=== PATIENT | male | born 1950 | race Hispanic/Latino ===

== ENCOUNTER 2018-04-01 08:09 | Inpatient (IN) | payer MEDICARE, BC ==
[2018-04-01] MEDS ORDERED: Sodium Chloride 0.9% 1,000 ML IV STA ×2 (09:07→12:06)
--- NOTE | 2018-04-01 09:11 | ED PDOC ---
Arrival/HPI - General Chief Complaint: GI Problem Time Seen by Provider: 04/01/18 08:53 Historian: Patient - History of Present Illness Narrative History of Present Illness (Text): 04/01/18 09:11 67 year old male, whose past medical history includes hypertension and inguinal hernia, presents to the emergency department complaining of acute onset of severe nauseousness and persistent vomiting since last night. Patient also describes during the onset of vomiting there was associated onset of chills and sweats. Patient felt discomfort to the right lower groin region. He reports history of hernia that he has been treating on his own for the past year however to his knowledge the right inguinal hernia felt like a ball to him since last night and was unable to reduce it himself. He describes mild discomfort and states he vomited at least 4-5 times since last night. Patient's last bowel movement was this morning, normal appearing and non-bloody. Patient reports no vomiting prior to arrival and decreased appetite, but denies any fever, chest pain/shortness of breath/palpitations, numbness/tingling, urinary/ bowel changes/complaints, fall/trauma/sick contact/travel. No other complaints noted; Patient presents for further evaluation. PMD: Dr. Christopher Cabrera Time/Duration: 24 hours Symptom Onset: Sudden Symptom Course: Unchanged Activities at Onset: Light Context: Home Past Medical History - Provider Review Nursing Documentation Reviewed: Yes - Travel History Have you recently traveled outside [place] w/in the past 3 mons?: No - Past History Past History: Non-Contributing (hx of right inguinal hernia) - Infectious Disease Hx of Infectious Diseases: None - Cardiac Hx Hypertension: Yes - HEENT Other/Comment: tinitis - Psychiatric Hx Anxiety: Yes Hx Depression: Yes Hx Panic Disorder: Yes Hx Substance Use: No - Anesthesia Hx Anesthesia: Yes Hx Anesthesia Reactions: No Family/Social History - Physician Review Nursing Documentation Reviewed: Yes Family/Social History: No Known Family HX Smoking Status: Heavy Smoker > 10 Cigarettes Daily Hx Alcohol Use: No Hx Substance Use: No Hx Substance Use Treatment: No Allergies/Home Meds Allergies/Adverse Reactions: Allergies No Known Allergies Allergy (Verified 04/01/18 11:54) Home Medications: Home Meds Medication Instructions Recorded Confirmed Lisinopril [Zestril] 10 mg PO DAILY 04/01/18 04/01/18 PARoxetine [Paxil] 10 mg PO DAILY 04/01/18 04/01/18 amLODIPine [Norvasc] 5 mg PO DAILY 04/01/18 04/01/18 Review of Systems - Physician Review All systems were reviewed & negative as marked: Yes - Review of Systems Constitutional: Other (Chills and sweats). absent: Fevers Eyes: Normal ENT: Normal Respiratory: absent: SOB Cardiovascular: absent: Chest Pain, Palpitations Gastrointestinal: Nausea, Vomiting, Appetite Changes (Decreased appetite). absent: Stool Changes Genitourinary Male: absent: Dysuria, Urinary Output Changes Musculoskeletal: Normal Skin: Normal Neurological: absent: Headache, Other (Numbness/tingling) Endocrine: Normal Hemo/Lymphatic: Normal Psychiatric: Normal Physical Exam - Physical Exam Narrative Physical Exam (Text): General: alert/awake, GCS = 15, oriented x 3, resting in bed, uncomfortable, cooperative, interactive Head: NC/AT EYE: PERRLA, EOMI, sclera anicteric, no nystagmus, no photophobia Facial: WNL Oral: intact dentitions; uvula/tongue are midline, no exudate/lesions, no drooling/stridor, no dysphonia NECK: intact ROM, no midline tenderness, no nuchal rigidity, no meningeal signs ; no step off Chest: CTA b/l, no w/r/r; no tachypenia, no accessory muscle use noted Cardiac: +S1, +S2, no m/r/r Abdominal: +BS, soft/ND well nourished patient; no rebound/guarding/rigidity; + right inguinal/groin region indurated mass is noted, unable to reduce, slight tenderness on exam, approximately the size of a small orange; no crews's sign, no mcburney's point tenderness noted Ext: intact ROM, strength 5/5 grossly intact in all limbs, neurovasc intact b/l ; no pitting edema noted b/l, + ambulatory SKIN: cap refill < 1 sec, no ulcerations, no petechiae, no rashes NEURO: CNII-XII WNL, no facial asymmetries, no slurr speech, oriented x 3 NIH stroke scale ~ 0 Psych: normal insight, normal affect Vital Signs Reviewed: Yes Vital Signs Temp Pulse Resp BP Pulse Ox 04/01/18 11:24 86 18 158/74 H 97 04/01/18 08:25 97.9 F 90 16 165/82 H 99 Temperature: Afebrile Blood Pressure: Hypertensive Pulse: Regular Respiratory Rate: Normal Appearance: Positive for: Well-Appearing, Non-Toxic, Uncomfortable Pain Distress: None Mental Status: Positive for: Alert and Oriented X 3 - Systems Exam Head: Present: Atraumatic, Normocephalic Medical Decision Making ED Course and Treatment: 04/01/18 09:11 Impression: right inguinal mass, r/o incarceration, unlikely obstruction 67 year old male presents complaining of acute onset of severe nauseousness and persistent vomiting since last night. Patient reports his inguinal hernia felt like a ball and unable to reduce himself. I have considered all differential diagnoses regarding patients chief medical complaints/clinical findings which include but are not limited to: right inguinal mass, r/o incarceration, unlikely obstruction, unlikely appy, unlikely food poisoning Plan: -- VBG -- Labs -- IV Fluids, Zofran Inj -- Urinalysis -- Reassess and disposition Progress Notes: 04/01/18 09:[address]Thomas Cabrera. Attempt to contact him was unsuccessful and will continue to page and attempt to reach out. 04/01/18 10:[address] Cabrera who is aware and agrees with the plan. Request surgery consult under Dr. Thurman. 04/01/18 10:42 Product Coordinator team and Dr. Cabrera are at patient's bed side and evaluating the patient. They would like to obtain a CT. Will continue to monitor patient. due to abnl lab results, Dr Cabrera will admit patient to medical service and surgery will continue to monitor pt is currently drinking PO contrast for CT abd/pelvis to be performed 11:30am pt remained comfortable pt is not in any distress pt is made aware of his medical results pt is awaiting CT results pt agrees with admission 04/01/18 12:05 Patient attempted to drink PO contrast. After 2 Cups, patient is viciously vomiting. 1235 CT results obtained, concerning findings are noted, Surgery team is made aware, will continue to monitor patient, pt will likely need surgery I spoke to Dr Cabrera, made aware of abnl CT results, pt will continue to be admitted with close monitor by surgery, would like to consult Luis Alberto for nephrology 04/01/18 13:32 pt and family are made aware of pt's medical results agrees with admission Re-evaluation Time: 11:30 Reassessment Condition: Improving,but remains with symptoms - Critical Care Critical Care Minutes: 45 minutes Critical Care Time: Excluding Proc Time Narrative Critical Care (Text): 04/01/18 13:32 critical care time: 45min, excluding procedure time, excluding time teaching residents/students/mid-level providers; including initial eval/diagnosis, diagnostic interpretation, re-eval, consultations, final disposition - Lab Interpretations Lab Results: 04/01/18 09:51 04/01/18 09:51 Lab Results 04/01/18 09:51: Sodium 155 H, Chloride 113 H, Potassium 5.5 H, Carbon Dioxide 25 , Anion Gap 22 H, BUN 41 H, Creatinine 3.5 H, Est GFR ( Amer) 21, Est GFR (Non-Af Amer) 18, Random Glucose 144 H, Calcium 10.3, Magnesium 2.6 H, Total Bilirubin 0.4, AST 19, ALT 20, Alkaline Phosphatase 103, Total Protein 8.0 , Albumin 4.7, Globulin 3.3, Albumin/Globulin Ratio 1.4, Lipase 168 04/01/18 09:51: pO2 31, VBG pH 7.27 L, VBG pCO2 57.0, VBG HCO3 26.2, VBG Total CO2 27.9, VBG O2 Sat (Calc) 66.6 H, VBG Base Excess -1.7 L, VBG Potassium 5.1, Sodium 146.0, Chloride 112.0 H, Glucose 146 H, Lactate 1.5, FiO2 21.0, Venous Blood Potassium 5.1 04/01/18 09:51: PT 12.0, INR 1.04, APTT 33.5 04/01/18 09:51: WBC 15.8 H, RBC 4.69, Hgb 13.7 L, Hct 41.9 L, MCV 89.3, MCH 29.2 , MCHC 32.7, RDW 13.3, Plt Count 298, MPV 12.0 H, Gran % 87.0 H, Lymph % (Auto) 8.6 L, [place] % (Auto) 3.9, Eos % (Auto) 0.1 L, Baso % (Auto) 0.4, Gran # 13.79 H , Lymph # (Auto) 1.4, [place] # (Auto) 0.6, Eos # (Auto) 0.0, Baso # (Auto) 0.06 I have reviewed the lab results: Yes Interpretation: Abnormal lab values (abnl electrolytes, abnl BUN/creat; elevated WBCs) - RAD Interpretation Narrative RAD Interpretations (Text): 04/01/18 13:37 PROCEDURE: CT Abdomen and Pelvis without intravenous contrast HISTORY: abd pain, right hernia, r/o incarceration/obstrxn COMPARISON: None. TECHNIQUE: Without contrast.. Contrast dose: Radiation dose: Total exam DLP = 259 mGy-cm. This CT exam was performed using one or more of the following dose reduction techniques: Automated exposure control, adjustment of the mA and/or kV according to patient size, and/or use of iterative reconstruction technique. FINDINGS: LOWER THORAX: Unremarkable. LIVER: Unremarkable. No gross lesion or ductal dilatation. GALLBLADDER AND BILE DUCTS: Unremarkable. PANCREAS: Unremarkable. No gross lesion or ductal dilatation. SPLEEN: Unremarkable. ADRENALS: Unremarkable. No mass. KIDNEYS AND URETERS: Unremarkable. No hydronephrosis. No solid mass. VASCULATURE: Unremarkable. No aortic aneurysm. BOWEL: There is an incarcerated right inguinal hernia measuring 5.7 cm in diameter. The this contains a small bowel loop. Severely dilated loops are seen proximal to the hernia. The finding is best seen on coronal image 43. The ER staff was notified of the finding at 12:50 p.m. APPENDIX: Unremarkable. Normal appendix. PERITONEUM: Unremarkable. No free fluid. No free air. LYMPH NODES: Unremarkable. No enlarged lymph nodes. BLADDER: Unremarkable. REPRODUCTIVE: Unremarkable. BONES: No acute fracture. OTHER FINDINGS: None. IMPRESSION: Incarcerated right inguinal hernia containing a loop of small bowel with severe small bowel obstruction Radiology Orders: 04/01/18 10:45 ABD & PELVIS PO CONTRAST ONLY [CT] Stat Canopy Stringer: Radiologist - EKG Interpretation EKG Interpretation (Text): 04/01/18 11:50 NSR at 60 bpm, normal axis, no ectopy, non-specific st changes, BORDERLINE EKG; no old ekg to compare with Interpreted by ED Physician: Yes Type: 12 lead EKG Comparison: No previous EKG avail. - Medication Orders Current Medication Orders: Sodium Chloride (Sodium Chloride 0.9%) 1,000 mls @ 100 mls/hr IV .Q10H STA Stop: 04/01/18 19:06 Last Admin: 04/01/18 09:56 Dose: 100 mls/hr eMAR Start Stop Document 04/01/18 09:56 [email or web address] (Rec: 04/01/18 09:56 [email or web address] [id number]) Intravenous Solution Start Date 04/01/18 Start Time 09:56 End Date 04/01/18 Discontinued Medications Famotidine (Pepcid) 20 mg IVP STAT STA Stop: 04/01/18 12:06 Sodium Chloride (Sodium Chloride 0.9%) 1,000 mls @ 999 mls/hr IV .Q1H1M STA Stop: 04/01/18 13:06 Morphine Sulfate (Morphine) 4 mg IVP STAT STA Stop: 04/01/18 13:12 Ondansetron HCl (Zofran Inj) 4 mg IVP STAT STA Stop: 04/01/18 09:08 Last Admin: 04/01/18 09:56 Dose: 4 mg IVP Administration Document 04/01/18 09:56 [email or web address] (Rec: 04/01/18 09:56 [email or web address] [id number]) Charges for Administration # of IVP Administrations 1 Ondansetron HCl (Zofran Inj) 4 mg IVP STAT STA Stop: 04/01/18 12:06 - Scribe Statement The provider has reviewed the documentation as recorded by the Sydney Mejias Provider Scribe Attestation: All medical record entries made by the Makiibdanay were at my direction and personally dictated by me. I have reviewed the chart and agree that the record accurately reflects my personal performance of the history, physical exam, medical decision making, and the department course for this patient. I have also personally directed, reviewed, and agree with the discharge instructions and disposition. Disposition/Present on Arrival - Present on Arrival Any Indicators Present on Arrival: No History of DVT/PE: No History of Uncontrolled Diabetes: No Urinary Catheter: No History of Decub. Ulcer: No History Surgical Site Infection Following: None - Disposition Have Diagnosis and Disposition been Completed?: Yes Diagnosis: Inguinal hernia with irreducibility, Acute renal insufficiency, Hypernatremia, Nausea and vomiting, Incarcerated inguinal hernia, Small bowel obstruction Disposition: HOSPITALIZED Disposition Time: 11:30 Patient Plan: Admission, Telemetry Patient Problems: Current Active Problems Problem Status Onset Inguinal hernia with irreducibility Acute Acute renal insufficiency Acute Hypernatremia Acute Nausea and vomiting Acute Condition: STABLE
[2018-04-01 09:55] LABS: VENOUS BLOOD GAS BASE EXCESS -1.7 mmol/L (0.0-2.0); VENOUS BLOOD GAS PO2 31 mm/Hg (30-55); VENOUS BLOOD PH 7.27 (7.32-7.43)
[2018-04-01 10:02] LABS: BASO # 0.06 K/mm3 (0.0-2.0); BASO % 0.4 % (0.0-3.0); EOS % 0.1 % (1.5-5.0); GRAN # 13.79 (1.4-6.5); HEMOGLOBIN 13.7 g/dL (14.0-18.0); LYMPH # 1.4 (1.2-3.4); LYMPH % 8.6 % (22.0-35.0); MEAN CELL VOLUME 89.3 fl (80.0-105.0); MEAN CORPUSCULAR HEMOGLOBIN 29.2 pg (25.0-35.0); MEAN CORPUSCULAR HGB CONC 32.7 g/dl (31.0-37.0); MONO # 0.6 (0.1-0.6); MONO % 3.9 % (1.0-6.0); RBC 4.69 10^6/uL (3.5-6.1); RED CELL DISTRIBUTION WIDTH 13.3 % (11.5-14.5); WHITE BLOOD COUNT 15.8 10^3/ul (4.5-11.0)
[2018-04-01 10:05] LABS: ALB/GLOB RATIO 1.4 (1.1-1.8); ALBUMIN 4.7 g/dL (3.0-4.8); CALCIUM 10.3 mg/dL (8.4-10.5)
[2018-04-01 10:13] LABS: INR 1.04 (0.93-1.08); PARTIAL THROMBOPLASTIN TIME 33.5 Seconds (25.1-36.5)
[2018-04-01] MEDS ORDERED: Iohexol 240 (50 ml) ONE (10:49)
--- NOTE | 2018-04-01 12:05 | CP.PCM.CON ---
History of Present Illness - History of Present Illness History of Present Illness: PGY-1 Surgery Consult Note for Dr. Phoebe Andre Reason for consult: Incarcerated inguinal hernia This is a 67 year old male with PMHx HTN and inguinal hernia who presented complaining of intractible nausea/vomiting. This started about 4 hours after he ate at [employer] yesterday. Patient reports that he had 4-5 bouts of green bilious, non-bloody vomiting since yesterday. Surgery was consulted for right inguinal hernia that was unable to be reduced in the ED. Patient reports that he had surgery with mesh placement about 5 or 6 years ago for the hernia. However, he had recurrence of the hernia after he had done some heavy lifting. It protrudes intermittently but has been reducible up until today. Patient was initially in pain, but this has since resolved. PMHx: HTN PSHx: Right inguinal hernia repair with mesh 5 or 6 years ago Allergies: NKDA Social: Current smoker almost 1 ppd for past 40 years. Denies alcohol, drugs. Review of Systems - Constitutional Constitutional: absent: Chills, Fever - EENT Eyes: absent: Change in Vision Ears: absent: Decreased Hearing Nose/Mouth/Throat: absent: Nasal Congestion - Cardiovascular Cardiovascular: absent: Chest Pain - Respiratory Respiratory: absent: Dyspnea - Gastrointestinal Gastrointestinal: Abdominal Pain (resolved), Nausea (improved), Vomiting. absent: Constipation, Diarrhea - Genitourinary Genitourinary: absent: Dysuria - Musculoskeletal Musculoskeletal: absent: Back Pain - Integumentary Integumentary: absent: Rash - Neurological Neurological: absent: Weakness - Psychiatric Psychiatric: absent: Anxiety - Endocrine Endocrine: absent: Palpitations Past Patient History - Infectious Disease Hx of Infectious Diseases: None - Past Social History Smoking Status: Heavy Smoker > 10 Cigarettes Daily - CARDIAC Hx Hypertension: Yes - HEENT Other/Comment: tinitis - PSYCHIATRIC Hx Anxiety: Yes Hx Depression: Yes Hx Panic Symptoms: Yes Hx Substance Use: No - SURGICAL HISTORY Hx Surgeries: No - ANESTHESIA Hx Anesthesia: Yes Hx Anesthesia Reactions: No Meds Allergies/Adverse Reactions: Allergies Allergy/AdvReac Type Severity Reaction Status Date / Time No Known Allergies Allergy Verified 04/01/18 11:54 - Medications Medications: Current Medications Sodium Chloride (Sodium Chloride 0.9%) 1,000 mls @ 100 mls/hr IV .Q10H STA Stop: 04/01/18 19:06 Last Admin: 04/01/18 09:56 Dose: 100 mls/hr Physical Exam - Constitutional Appears: No Acute Distress - Head Exam Head Exam: ATRAUMATIC, NORMOCEPHALIC - Eye Exam Eye Exam: EOMI, Normal appearance - ENT Exam ENT Exam: Mucous Membranes Moist - Respiratory Exam Respiratory Exam: NORMAL BREATHING PATTERN. absent: Respiratory Distress - Cardiovascular Exam Cardiovascular Exam: +S1, +S2 - GI/Abdominal Exam GI & Abdominal Exam: Hernia (incarcerated right inguinal hernia), Soft. absent : Tenderness - Extremities Exam Extremities exam: Negative for: pedal edema - Neurological Exam Neurological exam: Alert, Oriented x3 - Psychiatric Exam Psychiatric exam: Normal Affect, Normal Mood - Skin Skin Exam: Dry, Warm Results - Vital Signs Recent Vital Signs: Last Vital Signs Temp 97.9 F 04/01/18 08:25 Pulse 86 04/01/18 11:24 Resp 18 04/01/18 11:24 BP 158/74 H 04/01/18 11:24 Pulse Ox 97 04/01/18 11:24 - Labs Result Diagrams: 04/01/18 09:51 04/01/18 09:51 Assessment & Plan - Assessment and Plan (Free Text) Assessment: This is a 67 year old male with PMHx HTN and right inguinal hernia s/p repair with mesh with a recurrence of the hernia along with incarceration. Plan: CT abdomen/pelvis with PO contrast shows incarcerated right inguinal hernia with small bowel loop and severe SBO NGT placed and set on suction Will need surgical intervention Will be discussed with Dr. Phoebe Andre Keep NPO and on IV fluids Cristiano Ray PGY-1
--- NOTE | 2018-04-01 12:57 | CT ---
PROCEDURE: CT Abdomen and Pelvis without intravenous contrast HISTORY: abd pain, right hernia, r/o incarceration/obstrxn COMPARISON: None. TECHNIQUE: Without contrast.. Contrast dose: Radiation dose: Total exam DLP = 259 mGy-cm. This CT exam was performed using one or more of the following dose reduction techniques: Automated exposure control, adjustment of the mA and/or kV according to patient size, and/or use of iterative reconstruction technique. FINDINGS: LOWER THORAX: Unremarkable. LIVER: Unremarkable. No gross lesion or ductal dilatation. GALLBLADDER AND BILE DUCTS: Unremarkable. PANCREAS: Unremarkable. No gross lesion or ductal dilatation. SPLEEN: Unremarkable. ADRENALS: Unremarkable. No mass. KIDNEYS AND URETERS: Unremarkable. No hydronephrosis. No solid mass. VASCULATURE: Unremarkable. No aortic aneurysm. BOWEL: There is an incarcerated right inguinal hernia measuring 5.7 cm in diameter. The this contains a small bowel loop. Severely dilated loops are seen proximal to the hernia. The finding is best seen on coronal image 43. The ER staff was notified of the finding at 12:50 p.m. APPENDIX: Unremarkable. Normal appendix. PERITONEUM: Unremarkable. No free fluid. No free air. LYMPH NODES: Unremarkable. No enlarged lymph nodes. BLADDER: Unremarkable. REPRODUCTIVE: Unremarkable. BONES: No acute fracture. OTHER FINDINGS: None. IMPRESSION: Incarcerated right inguinal hernia containing a loop of small bowel with severe small bowel obstruction
[2018-04-01] MEDS ORDERED: Morphine 4 mg/ml ISec IVP STA (13:11)
[2018-04-01] MEDS ORDERED: TETRACAINE/BENZOCAINE/BUTAMBEN 20 GM SPRAY TP ONE (13:23)
[2018-04-01 16:24] VITALS: BMI 20.2
[2018-04-01] MEDS ORDERED: Pneumococcal 23-Valent Vaccine IM ONE (16:24)
--- NOTE | 2018-04-01 16:25 | CON ---
DATE: 04/01/2018 REASON FOR CONSULTATION: Acute kidney injury, hyperkalemia, hypernatremia. HISTORY OF PRESENTING ILLNESS: A 67-year-old, previously unknown to me, presented to the emergency room with complaints of vomiting since last night. The patient reports that he has a recurrent right inguinal hernia. The hernia has been bothering him for the last 1 year. It had been reducible. But last night he started having pain. Vomiting. He was not able to reduce the hernia. He came to the emergency room this morning. His initial vital signs showed a blood pressure of 165/82, heart rate was 90. The patient was afebrile. Blood work revealed WBC count of 15.8. Sodium of 155, potassium of 5.5, BUN 41, creatinine of 3.5. The patient reports he does have chronic kidney disease, his creatinine was probably 2.5 over a year ago. He gives a history of hypertension for many years. Denies any history of any heart disease, diabetes. PAST MEDICAL AND SURGICAL HISTORY: Hypertension for 10+ years, inguinal hernia repair 10 years ago, right inguinal hernia recurrent for the last 1 year, chronic kidney disease stage 3?. FAMILY HISTORY: Noncontributory. SOCIAL HISTORY: The patient is a smoker, he smokes about 15 cigarettes per day. No alcohol use, no IV drug abuse. ALLERGIES: NO KNOWN DRUG ALLERGIES. MEDICATIONS AT HOME: Amlodipine 5, Zestril 10, Paxil 10. REVIEW OF SYSTEMS: All systems are reviewed, pertinent positives as mentioned in the history of presenting illness, rest unremarkable. PHYSICAL EXAMINATION: GENERAL: Thinly built elderly male lying in bed. VITAL SIGNS: Blood pressure 152/69, heart rate 79, respiratory rate 18, temperature 97.9. HEENT: Normocephalic, atraumatic, positive pallor. NECK: Supple, no JVD. LUNGS: Bilateral equal air entry, bilateral equal expansion, no rales. CARDIAC: S1 and S2, regular rate and rhythm, no murmur, no rub. ABDOMEN: Soft, nondistended, nontender, bowel sounds present, nonreducible right inguinal hernia is seen. EXTREMITIES: No lower extremity edema. LABORATORY DATA: White count 15.8, hemoglobin 13.7, hematocrit 42, platelets 298, MCV 89. Sodium 155, potassium 5.5, chloride 113, CO2 of 25, BUN 41, creatinine 3.5, glucose 144, calcium 10.3, magnesium 2.6, albumin 4.7. INR 1. CT of the abdomen and pelvis: Incarcerated right inguinal hernia containing a loop of small bowel with severe small bowel obstruction. ASSESSMENT: 1. Acute kidney injury superimposed on chronic kidney disease stage 3. 2. Hypernatremia, likely secondary to dehydration. 3. Hyperkalemia secondary to acute kidney injury in the setting of dehydration and concomitant angiotensin-converting enzyme inhibitor use. 4. Hypertension. 5. Etiology of chronic kidney disease, hypertensive nephrosclerosis? PLAN: 1. IV fluid resuscitation, change IV fluids to half-normal saline. 2. No treatment is needed for mild hyperkalemia at this time. 3. Check urinalysis. 4. Hold WHITNEY inhibitor. 5. Can use amlodipine for blood pressure. 6. Surgery for incarcerated hernia with bowel obstruction. Shavonne Sahu MD
[2018-04-01] MEDS: Sodium Chloride 0.45% 1,000 ML IV SCH (18:04)
[2018-04-01 18:42] LABS: PH,URINE 5.5 (4.7-8.0); URINE BILIRUBIN NEGATIVE (NEGATIVE); URINE BLOOD MODERATE (NEGATIVE); URINE GLUCOSE (UA) NEGATIVE (NEGATIVE); URINE LEUKOCYTE ESTERASE TRACE Leu/uL (NEGATIVE); URINE PROTEIN 100 mg/dL (<30 mg/dL); URINE UROBILINOGEN 0.2 E.U./dL (<1 E.U./dL)
[2018-04-01 18:47] LABS: URINE COLOR YELLOW (YELLOW)
[2018-04-01 18:48] LABS: URINE APPEARANCE CLOUDY (CLEAR)
[2018-04-01 18:49] LABS: URINE AMORPHOUS SEDIMENT MANY; URINE BACTERIA MOD (NEG)
--- NOTE | 2018-04-01 18:49 | RAD ---
HISTORY: pre op COMPARISON: 12/06/2013 FINDINGS: LUNGS: No active pulmonary disease. PLEURA: No significant pleural effusion identified, no pneumothorax apparent. CARDIOVASCULAR: Normal heart size. Nasogastric tube extends to left upper quadrant of abdomen. OSSEOUS STRUCTURES: No significant abnormalities. VISUALIZED UPPER ABDOMEN: Normal. OTHER FINDINGS: None. IMPRESSION: Nasogastric tube appropriately positioned. Otherwise unremarkable.
[2018-04-01] MEDS ORDERED: Propofol 10 mg/ml Inj (20 ML) ONE (20:11)
[2018-04-01] MEDS ORDERED: Midazolam 2 MG/2 ML VIAL ONE (20:11)
[2018-04-01] MEDS ORDERED: Rocuronium 10 mg/ml (5 ml) ONE (20:12)
[2018-04-01] MEDS ORDERED: Bupivacaine 0.5% Inj(30mL) ONE (20:35)
[2018-04-01] MEDS ORDERED: Neostigmine Methylsulfate 3mg/3ml Syringe IV ONE ×2 (21:43→21:45)
--- NOTE | 2018-04-01 21:44 | CARD ---
APPROVED REPORT EKG Measurement Heart [id number] MS [id number] <Conclusion> Normal sinus rhythm Possible Left atrial enlargement Borderline ECG
--- NOTE | 2018-04-01 22:56 | PCM.SURG1 ---
Surgeon's Initial Post Op Note - Surgeon's Notes Surgeon: Dr. Allyssa Andre Senior Partner: Jasmin PGY1 Type of Anesthesia: General Endo Pre-Operative Diagnosis: Right incarcerated inguinal hernia Operative Findings: Right incarcerated inguinal hernia Post-Operative Diagnosis: Right incarcerated inguinal hernia Operation Performed: Repair of Right incarcerated inguinal hernia with mesh Specimen/Specimens Removed: cord lipoma, mesh Estimated Blood Loss: EBL {In ML}: 20 Blood Products Given: N/A Drains Used: No Drains Post-Op Condition: Good Date of Surgery/Procedure: 04/01/18 Time of Surgery/Procedure: 20:30
[2018-04-01] MEDS ORDERED: Lactated Ringer's 1,000 ML IV SCH (23:00)
[2018-04-01] MEDS ORDERED: HYDROmorphone 0.5 mg/0.5 ml ISec IVP PRN (23:00)
[2018-04-02 00:36] LABS: BASO # 0.04 K/mm3 (0.0-2.0); BASO % 0.2 % (0.0-3.0); EOS % 0.2 % (1.5-5.0); GRAN # 18.57 (1.4-6.5); GRAN % 82.1 % (50.0-68.0); HEMOGLOBIN 11.9 g/dL (14.0-18.0); LYMPH # 2.2 (1.2-3.4); LYMPH % 9.8 % (22.0-35.0); MEAN CELL VOLUME 89.3 fl (80.0-105.0); MEAN CORPUSCULAR HEMOGLOBIN 28.9 pg (25.0-35.0); MEAN CORPUSCULAR HGB CONC 32.3 g/dl (31.0-37.0); MEAN PLATELET VOLUME 11.6 fl (7.0-11.0); MONO # 1.7 (0.1-0.6); MONO % 7.7 % (1.0-6.0); RBC 4.12 10^6/uL (3.5-6.1); RED CELL DISTRIBUTION WIDTH 13.3 % (11.5-14.5); WHITE BLOOD COUNT 22.6 10^3/ul (4.5-11.0)
[2018-04-02 01:27] LABS: ALB/GLOB RATIO 1.2 (1.1-1.8); ALBUMIN 3.2 g/dL (3.0-4.8); CALCIUM 7.8 mg/dL (8.4-10.5)
[2018-04-02] MEDS: Morphine 4 mg/ml ISec IVP PRN ×3 (05:22→18:52)
--- NOTE | 2018-04-02 09:16 | CP.PCM.PN ---
<MelvinAvi - Last Filed: 04/02/18 09:09> Subjective - Date & Time of Evaluation Date of Evaluation: 04/02/18 Time of Evaluation: 07:15 - Subjective Subjective: Surgery Progress note. Dr. Andre Pt seen and examined at bedside. No acute events overnight. Pain well tolerated. No N/V/D. NGT in place. Kasper in place. No new complaints. No fevers or chills. Kasper in place with 250cc yellow/clear urine since OR. Denies BM or flatus. Objective - Vital Signs/Intake and Output Vital Signs (last 24 hours): Temp Pulse Resp BP Pulse Ox 98 F 74 19 161/46 H 96 04/02/18 08:40 04/02/18 08:40 04/02/18 08:40 04/02/18 08:40 04/02/18 08:40 Intake and Output: 04/02/18 04/02/18 06:59 18:59 Intake Total 0 Output Total 100 Balance -100 - Medications Medications: Current Medications Amlodipine Besylate (Norvasc) 5 mg PO DAILY [facility] Last Admin: 04/01/18 18:03 Dose: 5 mg Hydralazine HCl (Apresoline) 10 mg IVP Q6 PRN PRN Reason: sbp>160 Last Admin: 04/01/18 19:37 Dose: 10 mg Sodium Chloride (Sodium Chloride 0.45%) 1,000 mls @ 100 mls/hr IV .Q10H [facility] Last Admin: 04/01/18 18:04 Dose: 100 mls/hr Morphine Sulfate (Morphine) 4 mg IVP Q4H PRN PRN Reason: Pain, severe (8-10) Last Admin: 04/02/18 05:22 Dose: 4 mg Ondansetron HCl (Zofran Inj) 4 mg IVP Q4H PRN PRN Reason: Nausea/Vomiting Pantoprazole Sodium (Protonix Inj) 40 mg IVP DAILY [facility] - Labs Labs: 04/02/18 00:10 04/02/18 00:10 PT 12.0 SECONDS (9.4-12.5) 04/01/18 09:51 INR 1.04 (0.93-1.08) 04/01/18 09:51 APTT 33.5 Seconds (25.1-36.5) 04/01/18 09:51 - Constitutional Appears: Well, Non-toxic, No Acute Distress - Head Exam Head Exam: ATRAUMATIC, NORMAL INSPECTION, NORMOCEPHALIC - Eye Exam Eye Exam: EOMI - ENT Exam ENT Exam: Mucous Membranes Moist - Respiratory Exam Respiratory Exam: NORMAL BREATHING PATTERN. absent: Accessory Muscle Use, Respiratory Distress - GI/Abdominal Exam GI & Abdominal Exam: Soft. absent: Distended, Guarding, Rebound Additional comments: right inguinal incision intact with dermabond. Mild moisés-incisional tenderness. Clean, dry and intact. No rebound, no guarding. soft. non distended. - Extremities Exam Extremities Exam: Normal Inspection. absent: Calf Tenderness - Neurological Exam Neurological Exam: Alert, Awake, Oriented x3 Assessment and Plan - Assessment and Plan (Free Text) Assessment: 67yo M with incarcerated Recurrent Right inguinal hernia. s/p herniorrhaphy with mesh. POD 1 Plan: - Clamp NGT. Abd Xray - Continue Kasper for now. will f/u creatinine and d/c kasper if closer to baseline - NPO for now - Antiemetics prn - Pain managemetn - f/u Nephro recs Further recs as per Dr. Thai Charles PGY1 surgery pager: [phone] <Chelle Andre - Last Filed: 04/04/18 12:22> Objective - Vital Signs/Intake and Output Vital Signs (last 24 hours): Temp Pulse Resp BP Pulse Ox 98.4 F 76 19 167/55 H 94 L 04/04/18 08:42 04/04/18 11:15 04/04/18 08:42 04/04/18 11:15 04/04/18 08:42 Intake and Output: 04/04/18 04/04/18 06:59 18:59 Intake Total 0 Output Total 500 Balance -500 - Medications Medications: Current Medications Alprazolam (Xanax) 0.25 mg PO Q6H PRN PRN Reason: Anxiety Stop: 04/11/18 12:14 Amlodipine Besylate (Norvasc) 5 mg PO DAILY [facility] Last Admin: 04/04/18 11:15 Dose: 5 mg Enoxaparin Sodium (Lovenox) 30 mg SC DAILY [facility] PRN Reason: Protocol Last Admin: 04/04/18 11:15 Dose: 30 mg Hydralazine HCl (Apresoline) 10 mg IVP Q6 PRN PRN Reason: sbp>160 Last Admin: 04/04/18 06:05 Dose: 10 mg Cefoxitin Sodium 1 gm/ Sodium (Chloride) 100 mls @ 100 mls/hr IV 0600,1800 SIL PRN Reason: Protocol Stop: 04/04/18 20:00 Last Admin: 04/04/18 05:17 Dose: 100 mls/hr Potassium Chloride 10 meq/ (Dextrose/Sodium Chloride) 1,005 mls @ 100 mls/hr IV .Q10H3M [facility] Morphine Sulfate (Morphine) 2 mg IVP Q4H PRN PRN Reason: Pain, severe (8-10) Last Admin: 04/04/18 11:20 Dose: 2 mg Ondansetron HCl (Zofran Inj) 4 mg IVP Q4H PRN PRN Reason: Nausea/Vomiting Oxycodone/Acetaminophen (Percocet 5/325 Mg Tab) 1 tab PO Q6H PRN PRN Reason: Pain, moderate (4-7) Stop: 04/07/18 05:44 Pantoprazole Sodium (Protonix Inj) 40 mg IVP DAILY [facility] Last Admin: 04/03/18 10:47 Dose: 40 mg Paroxetine HCl (Paxil) 10 mg PO DAILY [facility] Tamsulosin HCl (Flomax) 0.4 mg PO BID [facility] Last Admin: 04/04/18 11:15 Dose: 0.4 mg - Labs Labs: 04/04/18 06:30 04/04/18 06:30 PT 12.0 SECONDS (9.4-12.5) 04/01/18 09:51 INR 1.04 (0.93-1.08) 04/01/18 09:51 APTT 33.5 Seconds (25.1-36.5) 04/01/18 09:51 Assessment and Plan - Assessment and Plan (Free Text) Plan: I personally saw and examined the patient with the resident team and agree with above assessment and plan. Expecting delayed return of bowel function and ileus given severity of bowel incarceration and manipulation during repair.
[2018-04-02] MEDS: Sodium Chloride 0.45% 1,000 ML IV SCH (09:47)
[2018-04-02 09:57] LABS: HEMOGLOBIN 11.1 g/dL (14.0-18.0); MEAN CELL VOLUME 90.1 fl (80.0-105.0); MEAN CORPUSCULAR HEMOGLOBIN 28.9 pg (25.0-35.0); MEAN CORPUSCULAR HGB CONC 32.1 g/dl (31.0-37.0); MEAN PLATELET VOLUME 11.8 fl (7.0-11.0); RBC 3.84 10^6/uL (3.5-6.1); RED CELL DISTRIBUTION WIDTH 13.2 % (11.5-14.5); WHITE BLOOD COUNT 16.4 10^3/ul (4.5-11.0)
[2018-04-02 10:04] LABS: ALB/GLOB RATIO 1.2 (1.1-1.8); ALBUMIN 2.9 g/dL (3.0-4.8); CALCIUM 8.2 mg/dL (8.4-10.5)
--- NOTE | 2018-04-02 10:47 | RAD ---
HISTORY: s/p hernia repair COMPARISON: 04/01/2018 FINDINGS: BOWEL: There is improvement in the pattern of small bowel obstruction. BONES: Normal. OTHER FINDINGS: None. IMPRESSION: There is improvement in the pattern of small bowel obstruction
[2018-04-02] MEDS ORDERED: Benzocaine/Menthol (Cepacol) Lozenge MT PRN (14:14)
[2018-04-02] MEDS: Dextrose 5%/0.45% NS 1,000 ML IV SCH (18:43)
--- NOTE | 2018-04-02 18:48 | HP ---
DATE OF EXAM: I would like the admitting history and physical to be read as follows, if you would be so kind. HISTORY OF PRESENT ILLNESS: The patient is a 67-year-old male whose called me on the morning of admission. The patient apparently had been complaining of nausea and vomiting and then had a bilious bowel movement, presenting to the emergency room was recommended. The patient is known to have a history of hypertension and a right inguinal hernia, which he had been holding off on surgical repair for the past year or so. The patient reports having dinner the evening before, afterwards he was feeling ill, had been vomiting overnight as mentioned above. When seen in the emergency room, neither the patient himself, nor the ER physicians were able to reduce the inguinal hernia. At that point, surgical consultation was requested. PAST MEDICAL HISTORY: Positive for hypertension as mentioned above and also positive for anxiety and depression and tinnitus. He smokes one-half to one pack of cigarettes a day. He is a nonalcoholic drinker. ALLERGIES: HE HAS NO KNOWN MEDICAL ALLERGIES. MEDICATIONS: At the time of admission included lisinopril 10 mg once a day, Paxil 10 mg and amlodipine 5 mg. REVIEW OF SYSTEMS: Otherwise unremarkable. PHYSICAL EXAMINATION: VITAL SIGNS: Blood pressure is 161/46, heart rate is 74. HEAD, EYS, EARS, NOSE AND THROAT: Unremarkable. NECK: Supple with no lymphadenopathy and goiter. LUNGS: Clear to auscultation and percussion. HEART: Regular. ABDOMEN: Soft and nontender. Bowel sounds are normal. The nonreducible right inguinal hernia is present as mentioned above. EXTREMITIES: Free of cyanosis, clubbing or edema. NEUROLOGIC: The patient is awake, alert and oriented with no focal neurological signs. LABORATORY STUDIES: Show the white blood cell count to be elevated at 15.8, hemoglobin and hematocrit are 13.7 and 41.9, platelet count is 298. Sodium is 155, potassium is 5.5, blood urea nitrogen is 41, creatinine is 3.5; this is only slightly higher than in the past; I believe the creatinine was in the high 2s or 3 in 07/2017. He is of A-ve type blood. Chest x-ray shows no acute disease. EKG shows regular sinus rhythm with a possible left atrial enlargement. CAT scan of the abdomen shows incarcerated right inguinal hernia. PLAN: So the patient is to be admitted, evaluated by Surgery and will probably require surgical repair of his right inguinal hernia. The patient is to be reevaluated in the morning. Neil Cabrera MD YRN
--- NOTE | 2018-04-02 19:49 | PN ---
DATE: 04/02/2018 SUBJECTIVE: The patient is seen lying in bed. He has an NG tube. He is postop day #1 status post right inguinal hernia repair with mesh. He feels well. He complains of pain in his throat because of the NG tube. He wants the NG tube out. He denies any abdominal pain. He denies any urinary complaints. His Luna was just removed. PHYSICAL EXAMINATION: GENERAL: Thinly built elderly male, lying in bed. VITAL SIGNS: Blood pressure 148/48, heart rate 84, respiratory rate 18, temperature 98. HEENT: Normocephalic, atraumatic, positive pallor. NECK: Supple, no JVD. LUNGS: Bilateral equal air entry, bilateral equal expansion. CARDIAC: S1 and S2, regular rate and rhythm, no murmur, no rub. ABDOMEN: Distended, soft, nontender, bowel sounds absent. EXTREMITIES: No lower extremity edema. INTAKE AND OUTPUT: Not charted. LABORATORY DATA: WBC 16, hemoglobin 11, hematocrit 35, platelets 225. Sodium 147, potassium 5.1, chloride 115, CO2 of 20, BUN 39, creatinine 3.1, glucose 75, calcium 8.2, albumin 2.9, corrected calcium is 8.9. Urinalysis: Yellow, cloudy, pH 5.5, specific gravity 1.025, protein 100, blood moderate, leukocyte esterase trace, rbc's 5-10, wbc's 5-10. CURRENT MEDICATIONS: Apresoline p.r.n., Cepacol, morphine, amlodipine 5 not given, Protonix, half-normal saline at 100, Zofran. ASSESSMENT: 1. Incarcerated right inguinal hernia, status post repair, postoperative day #1. 2. Acute kidney injury superimposed on chronic kidney disease stage 3/4. 3. Hyperkalemia, resolving. 4. Hypernatremia, resolving. 5. Hypertension. 6. Proteinuria/hematuria. PLAN: 1. Continue hypotonic IV fluids. 2. Mobilize the patient. 3. Advance diet as per surgical recommendations. 4. Start oral amlodipine once able to take p.o. 5. Monitor intake and output closely. 6. Etiology of chronic kidney disease stage 3/4 unclear at this time, the patient has proteinuria and hematuria. Will require workup. Shavonne Sahu MD
[2018-04-02] MEDS: cefOXitin Sodium 1 GM in Sodium Chloride 0.9% 100 ML IV SCH (21:25)
[2018-04-02] MEDS: metroNIDAZOLE IV 500 mg/100 ml 500 MG/100 ML BAG IVPB SCH (22:40)
--- NOTE | 2018-04-02 22:51 | PN ---
DATE: 04/02/2018 SUBJECTIVE: The patient is a 67-year-old male with a history of hypertension, right inguinal hernia, anxiety, depression and tinnitus, who presented to the emergency room with an incarcerated right inguinal hernia. He was evaluated by surgery, taken to the operating room, and hernia was surgically repaired. Today is postop day #1. When seen, the patient is resting comfortably. NG tube was still in place. His is at bedside. He is lungs are clear anteriorly. Heart is regular. ASSESSMENT AND PLAN: The patient feels uncomfortable with NG tube and like it to be removed as soon as possible. Also the patient has not urinated. Bladder ultrasound showed him to be retaining approximately 420 mL of urine. His intravenous fluid has been increased to 125 mL an hour. I spoke with the nursing staff, and in about an hour or two, we will check the urinary retention and consider straight catheter at that time. We are continuing to follow the patient closely postoperatively. Neil Cabrera MD
[2018-04-03] MEDS: Dextrose 5%/0.45% NS 1,000 ML IV SCH ×3 (01:04→13:07)
[2018-04-03] MEDS: cefOXitin Sodium 1 GM in Sodium Chloride 0.9% 100 ML IV SCH ×2 (03:26→18:14)
[2018-04-03] MEDS: metroNIDAZOLE IV 500 mg/100 ml 500 MG/100 ML BAG IVPB SCH ×3 (05:09→22:04)
[2018-04-03] MEDS: Morphine 4 mg/ml ISec IVP PRN (05:33)
--- NOTE | 2018-04-03 08:48 | CP.PCM.PN ---
Subjective - Date & Time of Evaluation Date of Evaluation: 04/03/18 Time of Evaluation: 07:30 - Subjective Subjective: Surgery Note for Dr. Andre Patient seen and examined at bedside. Per nursing staff, no acute events overnight. Patient denies flatus or bowel movements. Denies nausea, vomiting, abdominal pain. Luna was removed yesterday, and he had not yet urinated, but did ambulate to the bathroom and urinate in the toilet during the encounter. Denies fever, chills. NG tube in place, requesting for it to be removed, draining gastric fluid. Objective - Vital Signs/Intake and Output Vital Signs (last 24 hours): Temp Pulse Resp BP Pulse Ox 98.4 F 66 19 146/42 L 95 04/02/18 18:15 04/03/18 06:00 04/02/18 18:15 04/02/18 18:15 04/02/18 18:15 Intake and Output: 04/03/18 04/03/18 06:59 18:59 Intake Total 0 Output Total 800 Balance -800 - Medications Medications: Current Medications Amlodipine Besylate (Norvasc) 5 mg PO DAILY [facility] Last Admin: 04/02/18 09:58 Dose: Not Given Benzocaine/Menthol (Cepacol Sore Throat) 1 mackenzie MT Q2H PRN PRN Reason: Sore Throat Last Admin: 04/02/18 14:31 Dose: 1 mackenzie Hydralazine HCl (Apresoline) 10 mg IVP Q6 PRN PRN Reason: sbp>160 Last Admin: 04/02/18 17:26 Dose: 10 mg Dextrose/Sodium Chloride (Dextrose 5%/0.45% Ns 1000 Ml) 1,000 mls @ 125 mls/hr IV .Q8H [facility] Last Admin: 04/03/18 03:10 Dose: Not Given Cefoxitin Sodium 1 gm/ Sodium (Chloride) 100 mls @ 100 mls/hr IV Q8H [facility] PRN Reason: Protocol Stop: 04/04/18 20:00 Last Admin: 04/03/18 03:26 Dose: 100 mls/hr Metronidazole (Flagyl) 500 mg in 100 mls @ 100 mls/hr IVPB Q8 SIL PRN Reason: Protocol Stop: 04/04/18 20:00 Last Admin: 04/03/18 05:09 Dose: 100 mls/hr Morphine Sulfate (Morphine) 4 mg IVP Q4H PRN PRN Reason: Pain, severe (8-10) Last Admin: 04/03/18 05:33 Dose: 4 mg Ondansetron HCl (Zofran Inj) 4 mg IVP Q4H PRN PRN Reason: Nausea/Vomiting Pantoprazole Sodium (Protonix Inj) 40 mg IVP DAILY [facility] Last Admin: 04/02/18 09:47 Dose: 40 mg Tamsulosin HCl (Flomax) 0.4 mg PO DAILY [facility] Last Admin: 04/02/18 22:40 Dose: 0.4 mg - Labs Labs: 04/02/18 09:40 04/02/18 09:40 PT 12.0 SECONDS (9.4-12.5) 04/01/18 09:51 INR 1.04 (0.93-1.08) 04/01/18 09:51 APTT 33.5 Seconds (25.1-36.5) 04/01/18 09:51 - Constitutional Appears: Non-toxic, No Acute Distress - Head Exam Head Exam: NORMAL INSPECTION - Eye Exam Eye Exam: Normal appearance Assessment and Plan - Assessment and Plan (Free Text) Assessment: 67yo M with incarcerated Recurrent Right inguinal hernia. s/p herniorrhaphy with mesh. POD 2 Plan: - NGT in place; not yet passing gas. Maintain NGT on intermittent suction - Encouraged ambulation as tolerated - Luna discontinued yesterday; urinated normally this morning - NPO for now - Antiemetics prn - Pain management - f/u Nephro recs Further recs as per Dr. Thai Ibanez PGY1
[2018-04-03 09:45] LABS: BASO # 0.02 K/mm3 (0.0-2.0); BASO % 0.1 % (0.0-3.0); EOS # 0.2 (0.0-0.7); EOS % 1.1 % (1.5-5.0); GRAN # 11.39 (1.4-6.5); GRAN % 79.9 % (50.0-68.0); HEMOGLOBIN 11.2 g/dL (14.0-18.0); LYMPH # 1.4 (1.2-3.4); LYMPH % 9.7 % (22.0-35.0); MEAN CELL VOLUME 89.9 fl (80.0-105.0); MEAN CORPUSCULAR HEMOGLOBIN 28.9 pg (25.0-35.0); MEAN CORPUSCULAR HGB CONC 32.1 g/dl (31.0-37.0); MEAN PLATELET VOLUME 12.1 fl (7.0-11.0); MONO # 1.3 (0.1-0.6); MONO % 9.2 % (1.0-6.0); RBC 3.88 10^6/uL (3.5-6.1); RED CELL DISTRIBUTION WIDTH 13.4 % (11.5-14.5); WHITE BLOOD COUNT 14.3 10^3/ul (4.5-11.0)
[2018-04-03 09:54] LABS: CALCIUM 8.6 mg/dL (8.4-10.5)
--- NOTE | 2018-04-03 18:29 | OP ---
PROCEDURE DATE: 04/01/2018 PREOPERATIVE DIAGNOSES: Recurrent incarcerated right inguinal hernia High-grade small bowel obstruction. POSTOPERATIVE DIAGNOSIS: Recurrent right indirect inguinal hernia. PROCEDURES PERFORMED: Open repair of recurrent, incarcerated right inguinal hernia with mesh plug and patch Removal of foreign body/prosthetic mesh material Small bowel serosal repair x2. ANESTHESIA: General anesthesia. PRIMARY SURGEON: Chelle Andre MD ASSISTANTs: MD Jeevan Duque, PGY1 surgery resident PATHOLOGIC FINDINGS: Incarcerated small bowel and right indirect inguinal hernia; Densely adherent prior synthetic mesh material. Given patient's prior repair with mesh plug/patch and the chronicity of his known recurrence without seeking treatment, the mesh material and hernia sac were densely adherent to the cord structures, and inguinal floor which significantly distorted the normal anatomy. It appeared as though there was a medial failure of the previously placed mesh, causing recurrence and lateral displacement of mesh material involing the undersurface of the lateral aspect of external oblique aponeurosis. A significant amount of time, 45-60 minutes, was spent on meticulous sac dissection to free cord structures, define inguinal anatomy, and manual reduction of small bowel. SPECIMENS REMOVED: Cord lipoma; 1 x 2 cm piece of foreign body mesh material. ESTIMATED BLOOD LOSS: Approximately 20 mL. INDICATIONS FOR THE OPERATION: This is a 67-year-old male who previously had undergone an open right inguinal hernia repair with plug and patch per patient report back in 2010. The patient did well for a couple of years but later noticed a recurrence, now present for several years, easily reducible and never never sought re-evaluation to have this repaired. Twenty four hours prior to arrival, he had acute incarceration of his right-sided inguinal hernia, was not able to reduce at home, nausea, vomiting, abdominal distension, and pain which brought him to the ED. On CT scan, he was found to have an incarcerated right inguinal hernia with significantly dilated loops of small bowel proximally. We were unable to reduce this hernia in the emergency room and the patient was taken to the operating room for surgical repair and evaluation. Informed consent was obtained. DESCRIPTION OF PROCEDURE: Patient was brought to the operating room and placed supine on the operating room table. SCD boots were applied and functioning. Upper body warmer used. 1 g of Ancef IV, was administered prior to general anesthesia. Following successful endotracheal intubation, patient's groin and abdomen were shaved for hair removal, and the abdomen and bilateral groins were prepped and draped in sterile fashion. A time-out was performed prior to incision. 0.5% Marcaine local anesthesia was used to inject the site of his old incision, approximately 1 to 2 cm parallel and superior to the right inguinal ligament. A 15 blade scalpel was used to make a skin incision. This was deepened through Ashlyn and Camper fascia using electrocautery down to the external oblique aponeurosis. External oblique aponeurosis was then opened in the direction of its fibers through the external ring using the scalpel and then careful dissection with Metzenbaum scissors. We did not encounter the ilioinguinal nerve despite looking for it, it seemed as though the hernia recurrence had embedded all the tissue and was significantly obstructing tissue planes mostly on the lateral side underneath the lateral aspect of the external oblique. The external oblique aponeurosis incision was extended towards internal ring, allowing about a 4-5cm opening of the external oblique, which was adequate. The inguinal floor was exposed further by creating superior and inferior flaps of the external oblique. The spermatic cord and cord vessels were identified, mobilized at the pubic tubercle, and isolated using a Mesa drain successfully. This was done by dissecting the cremasteric fibers from the cord and blunt dissection at the pubic tubercle. We then encountered a bulging of hernia sac which was actually on the more postero-lateral aspect of the cord. Again, the tissue points were very much distorted. There was an enlarged mass which was inclusive of the hernia sac as well as densely adhered prior mesh plug material. After the hernia sac was carefully dissected free from the spermatic cord, the sac was then opened sharply with Metzenbaum scissors, taking care not to injury any underlying small intestine. The was opened and serosanguineous fluid removed. There was no succus or purulent fluid. The small bowel was then carefully inspected, appearing congested but not did not appear ischemic. There was a small hematoma that came out, which was at the base of the mesentery between two loops forming in a omega loop. We then externalized an additional 3to 4 cm of more proximal small bowel, inspected to make sure that the small bowel was viable, which it was. We then proceeded to try to reduce the small bowel back into the abdominal cavity; however, this took significant effort and that was not easily reducible due to the tight opening of the hernia defect. I also believed that the prior plug was causing obstruction which was severely limiting our ability to reduce the bowel with just gentle manual massage. We then placed a couple of Shaheed instruments on and try to reduce this way. Again had significant difficulty, so we then elected to open up the floor of inguinal canal at internal ring. This was incised sharply as well as bluntly the old mesh material. Following this, we tried using Shaheed graspers to help with reducing the small bowel, However, we did cause some serosal tearing, two separate areas likely from the Shaheed placement. The areas were inspected carefully and there was no full thickness injury. The first serosal tear was adjacent to the mesentery, this was about 1.5 cm. This was repaired with 2-0 silk sutures interrupted x4 and adjacent to that there was another 1 cm serosal tear, repaired using 2-0 silk interrupted suture x2. We carefully inspected the repairs and again there was no full-thickness injury or or any spillage. This was inspected further. Finally after about 20 minutes of gentle manual pressure, we were able to reduce the hernia back into the abdominal cavity. I then closed the pelvic floor where we opened up the internal ring, this was done using 0 Vicryl suture, in a running fashion. We then turned our attention to further dissection of the hernia sac more proximally to free it from any further attachments to allow placement of our mesh. The sac was then suture ligated again using a 0 Vicryl suture and a small piece of redundant sac was excised using the electrocautery. A pre-made Bard mesh plug, was approximated to the sac using a 2-0 Prolene suture. The sac and hernia plug allowed to retract back into the abdominal cavity. The plug was sutured in place using 2-0 Prolene sutures x2. To repair the floor of the canal, a precut Bard patch mesh was used, it was cut in oval shape with longitudinal lateral opening. The mesh was secured to pubic tubercle , with a single interrupted 2-0 prolene suture, an other was interrupted 2-0 Prolene suture form mesh to the reflected edge of the inguinal ligament inferiorly and the conjoint tendon superiorly. I then placed additional sutures , one medially connecting the patch to conjoint tendon and laterally two interrupted sutures were placed at the shelving edge more proximally. The ends of the patch were draped around the cord structures at the level of the internal ring. The Shy drain was removed and the cord was returned to its anatomic location above the mesh. At this point, we did notice that there were significant adhesions of the old mesh and plug to the inferior flap of the external oblique. I tried additionally using Metzenbaum to sharply dissect this off. However, I did not pursue any further. I thought this will cause more injury and damage any remaining tissue that he had allowing us for appropriate closure. Hemostasis was checked and achieved using the electrocautery. The external oblique aponeurosis was reapproximated using a continuous 2-0 Vicryl suture, paying attention not to incorporate any underlying tissue. The Ashlyn fascia was then closed with running 3-0 Vicryl sutures and the skin was closed using 4-0 subcuticular monofilament suture. Dermabond was then applied to the skin incision. The operative field was cleaned and dried. The testes were gently pulled down into the anatomical position in the scrotum. There were no intraoperative complications and all instrument and sponge counts were correct. A surgical de-briefing was performed. The patient was extubated and then transferred to the PACU in stable condition. I was present for the entirety of the operation. Chelle Andre MD [id number]
--- NOTE | 2018-04-03 19:31 | PN ---
DATE: 04/03/2018 SUBJECTIVE: The patient is seen lying in bed. He is awake. He is alert. He still has the NG tube. He has not voided in a long time. His latest bladder scan showed 450 residual. The patient is refusing straight cath. PHYSICAL EXAMINATION: GENERAL: Thinly built, elderly male, lying in bed. VITAL SIGNS: Blood pressure 164/84, heart rate 74, respiratory rate 18, temperature 98. HEENT: Normocephalic, atraumatic. NECK: Supple, no JVD. LUNGS: Bilateral equal air entry, no rales, no rhonchi. CARDIAC: S1 and S2, regular rate and rhythm, no murmur, no rub. ABDOMEN: Distended, soft, bowel sounds absent, nontender. EXTREMITIES: No lower extremity edema. LABORATORY DATA: WBC 14, hemoglobin 11, hematocrit 35, platelets 245. Sodium 144, potassium 4.5, chloride 113, CO2 of 19, BUN 43, creatinine 3.1, glucose 148, calcium 8.6, phosphorus 3.8, magnesium 2.2. CURRENT MEDICATIONS: Cefoxitin, Cepacol, D5 half normal saline at 125, Flagyl 500, Flomax 0.4, morphine, amlodipine 5, Protonix, Zofran. ASSESSMENT: 1. Acute kidney injury superimposed on chronic kidney disease stage 4, creatinine has plateaued. Perhaps baseline. 2. Resolved hyperkalemia. 3. Resolved hypernatremia. 4. Incarcerated right inguinal hernia, status post fixation with mesh, postoperative day #2. 5. Urinary retention. PLAN: 1. Urology input. 2. Continue IV fluids. 3. Continue Flomax. 4. Monitor bladder scan. Shavonne Sahu MD
--- NOTE | 2018-04-03 20:50 | CON ---
DATE: 04/03/2018 CONSULTATION CHIEF COMPLAINT: Urinary retention. HISTORY OF PRESENT ILLNESS: This is a 67-year-old male, seen in [facility]. The patient is postop day 2 from a repair of an incarcerated right inguinal hernia. The patient had no bowel necrosis by report. Postoperatively, the patient had his Luna catheter removed. He was then unable to void. A bladder scan showed about 800 mL in his bladder. He was then straight cathed and he was started on tamsulosin. He has been now receiving 0.8 mg a day. The patient continues to have voiding difficulties and a consultation was requested. The patient reports at home prior to this episode, he was voiding okay, although he did have reports that his stream had slowed in the past few years. He reported occasional nocturia, but had no straining or hesitancy. He reports no dysuria or urgency prior to this admission. consultation was requested regarding the above. PAST MEDICAL HISTORY: Significant for repair of right inguinal hernia, hypertension, anxiety and depression. MEDICATIONS AT HOME: Included lisinopril, Paxil, amlodipine, currently on hydralazine, cefoxitin, Flagyl, Flomax, morphine, Norvasc and Protonix. ALLERGIES: NO KNOWN DRUG ALLERGIES. FAMILY HISTORY: Noncontributory for this admission. SOCIAL HISTORY: Positive for smoking. Denies EtOH use. REVIEW OF SYSTEMS: The patient is seen in his room. He is awake, alert, answering questions. He does report some right lower quadrant abdominal pain. He reports some constipation. Has not moved his bowels recently. He does report he just voided a few hundred mL. He has no current urge to void. He is not complaining of any suprapubic pain or feeling urge to go. He did have some mild dysuria from the catheterization. All other systems are negative. PHYSICAL EXAMINATION: GENERAL: The patient is awake and alert. He is in no acute distress. VITAL SIGNS: He is afebrile 97.9, pulse is 74, BP 164/74, respirations are 20. NECK: Supple. There is no adenopathy or mass. CHEST: Examination of the chest reveals a normal inspiratory effort. CARDIAC: Shows positive S1, S2. There is no peripheral edema. ABDOMINAL: The abdomen is soft. There is some mild incisional tenderness. The wound is clean, dry and intact. He is slightly distended. GENITOURINARY: The bladder is slightly distended to percussion at this time. The phallus is normal. Scrotum is normal. Testes bilaterally descended, nontender. No masses. There is a mild scrotal ecchymosis. Epididymes are normal, nontender. EXTREMITIES: Show no cyanosis or edema. LABORATORY EXAM: WBC count 14.3. GFR is 20 with a BUN and creatinine of 43 and 3.1. Urinalysis showed 5-10 rbc, 5-10 wbc, negative for nitrites. On radiologic exam, CT scan of the abdomen and pelvis done from 04/01/2018 showed the kidneys were unremarkable. No hydronephrosis or mass. There is an incarcerated right inguinal hernia containing a small bowel loop with severely dilated loops proximal to the hernia. Bladder was unremarkable. IMPRESSION AND PLAN: This is a 67-year-old male with what appears to be postoperative urinary retention as well as either acute kidney injury or chronic kidney disease. The patient reports he has now been voiding with larger amounts. I discussed with him that he should have the Luna catheter replaced. The patient is refusing at this time. I discussed with him that if his bladder gets too distended, he will, 1, have pain and 2, possibly have deteriorating bladder function and worsening kidney function if there is a backup of urine and an obstructive uropathy. The patient reports he understands; however, he is refusing Luna catheter placement at this time. I discussed with the Surgery resident following him that the plan will be to repeat a bladder scan for postvoid residual after the next void. If there is more than 300-400 mL in his bladder, I would strongly recommend Luna catheter placement. However, if the patient continues to refuse, he is aware of the risks of not having the catheter placed. I would continue him on the tamsulosin for now. Also I would recommend treatment for constipation as this is possibly worsening his urinary function. There may not be any formed stool in his vault at this time anyway; however, if he continues to receive narcotic analgesics, he will likely develop worsening constipation. Thank you for allowing me to participate in the care of this patient. If the patient does well and is voiding, he should have outpatient urologic followup to make sure he is emptying adequately and also for a possible prostate cancer screening as it appears he has not had this done in the past. Thank you for allowing me to participate in the care of the patient. Frandy Costa MD
[2018-04-04] MEDS: Morphine 4 mg/ml ISec IVP PRN (05:16)
[2018-04-04] MEDS: cefOXitin Sodium 1 GM in Sodium Chloride 0.9% 100 ML IV SCH ×2 (05:17→18:01)
[2018-04-04] MEDS ORDERED: Oxycodone/Acetaminophen 5/325 mg Tab PO PRN (05:43)
[2018-04-04] MEDS ORDERED: Morphine 4 mg/ml ISec IVP PRN (05:44)
--- NOTE | 2018-04-04 06:30 | CP.PCM.PN ---
Subjective - Date & Time of Evaluation Date of Evaluation: 04/04/18 Time of Evaluation: 06:10 - Subjective Subjective: Patient seen and examined this AM. Pt had minimal out in NGT yesterday and it was discontinued. Patient had some persistent issues with urinary retention yesterday with small voids and high residuals but refused catheterization despite multiple discussions about the benefits and the risks of not having the cathter. He was evaluated by Dr. Costa, who recommended BID flomax and post-void bladder scans and catheterization if patient had high residuals. Overnight patient had increased urine output and lower postvoid residuals. Patient complains of cramping lower abdominal pain this AM but denies any nausea, vomiting, fevers, dysuria, or any other symptoms. Pain improved with IV morphine. Patient denies passing any gas or BM. Objective - Vital Signs/Intake and Output Vital Signs (last 24 hours): Temp Pulse Resp BP Pulse Ox 97.5 F L 78 20 172/58 H 92 L 04/03/18 22:51 04/04/18 06:05 04/03/18 22:51 04/04/18 06:05 04/03/18 22:51 Intake and Output: 04/03/18 04/04/18 18:59 06:59 Intake Total 0 0 Output Total 500 Balance 0 -500 - Medications Medications: Current Medications Amlodipine Besylate (Norvasc) 5 mg PO DAILY [facility] Last Admin: 04/03/18 10:47 Dose: 5 mg Enoxaparin Sodium (Lovenox) 30 mg SC DAILY [facility] PRN Reason: Protocol Hydralazine HCl (Apresoline) 10 mg IVP Q6 PRN PRN Reason: sbp>160 Last Admin: 04/04/18 06:05 Dose: 10 mg Dextrose/Sodium Chloride (Dextrose 5%/0.45% Ns 1000 Ml) 1,000 mls @ 125 mls/hr IV .Q8H [facility] Last Admin: 04/03/18 13:07 Dose: 125 mls/hr Cefoxitin Sodium 1 gm/ Sodium (Chloride) 100 mls @ 100 mls/hr IV 0600,1800 S[facility] PRN Reason: Protocol Stop: 04/04/18 20:00 Last Admin: 04/04/18 05:17 Dose: 100 mls/hr Morphine Sulfate (Morphine) 2 mg IVP Q4H PRN PRN Reason: Pain, severe (8-10) Ondansetron HCl (Zofran Inj) 4 mg IVP Q4H PRN PRN Reason: Nausea/Vomiting Oxycodone/Acetaminophen (Percocet 5/325 Mg Tab) 1 tab PO Q6H PRN PRN Reason: Pain, moderate (4-7) Stop: 04/07/18 05:44 Pantoprazole Sodium (Protonix Inj) 40 mg IVP DAILY [facility] Last Admin: 04/03/18 10:47 Dose: 40 mg Tamsulosin HCl (Flomax) 0.4 mg PO BID SIL - Labs Labs: 04/03/18 09:30 04/03/18 09:30 PT 12.0 SECONDS (9.4-12.5) 04/01/18 09:51 INR 1.04 (0.93-1.08) 04/01/18 09:51 APTT 33.5 Seconds (25.1-36.5) 04/01/18 09:51 - Constitutional Appears: Well, Non-toxic, No Acute Distress - Head Exam Head Exam: ATRAUMATIC, NORMOCEPHALIC - Eye Exam Eye Exam: Normal appearance. absent: Conjunctival injection, Scleral icterus - ENT Exam ENT Exam: Mucous Membranes Moist, Normal Oropharynx - Respiratory Exam Respiratory Exam: NORMAL BREATHING PATTERN. absent: Accessory Muscle Use, Respiratory Distress - Cardiovascular Exam Cardiovascular Exam: RRR - GI/Abdominal Exam GI & Abdominal Exam: Distended (mild distention worse than yesterday), Soft, Tenderness (RLQ) Additional comments: RLQ incision well approximated by dermabond, no erythema or drainage, moderate amount of moisés-incisional swelling unchanged from prior - Extremities Exam Extremities Exam: absent: Calf Tenderness, Pedal Edema, Tenderness - Neurological Exam Neurological Exam: Alert, Awake, Oriented x3 - Psychiatric Exam Psychiatric exam: Normal Affect, Normal Mood - Skin Skin Exam: Dry, Intact, Normal Color, Warm Assessment and Plan - Assessment and Plan (Free Text) Assessment: Trend CBC/BMP monitor urine output and bowel function Continue NPO with meds until patient passes flatus Continue to encourage ambulation Continue IVF and supplement potassium Continue management per Urology, nephrology, and primary Discussed with Dr. Andre, further recs per him Rosa Herrera, PGY2
[2018-04-04 06:59] LABS: BASO # 0.01 K/mm3 (0.0-2.0); BASO % 0.1 % (0.0-3.0); EOS # 0.2 (0.0-0.7); EOS % 2.9 % (1.5-5.0); GRAN # 5.83 (1.4-6.5); GRAN % 73.1 % (50.0-68.0); HEMOGLOBIN 9.3 g/dL (14.0-18.0); LYMPH # 1.1 (1.2-3.4); LYMPH % 14.3 % (22.0-35.0); MEAN CELL VOLUME 89.1 fl (80.0-105.0); MEAN CORPUSCULAR HEMOGLOBIN 28.3 pg (25.0-35.0); MEAN CORPUSCULAR HGB CONC 31.7 g/dl (31.0-37.0); MEAN PLATELET VOLUME 11.8 fl (7.0-11.0); MONO # 0.8 (0.1-0.6); MONO % 9.6 % (1.0-6.0); RBC 3.29 10^6/uL (3.5-6.1); RED CELL DISTRIBUTION WIDTH 13.1 % (11.5-14.5)
[2018-04-04 07:25] LABS: CALCIUM 8.1 mg/dL (8.4-10.5)
[2018-04-04] MEDS ORDERED: Potassium Chloride 10 MEQ in Dextrose 5%/0.45% NS 1,000 ML IV SCH (09:38)
[2018-04-04] MEDS: Enoxaparin 30 mg Syringe SC SCH (11:15)
--- NOTE | 2018-04-04 12:50 | PN ---
DATE: 04/04/2018 CHIEF COMPLAINT: Postoperative urinary retention. The patient is seen in his room. He is resting comfortably. He is easily awakened and answering questions appropriately. OBJECTIVE: VITAL SIGNS: He is afebrile. Temperature of 98.4, BP 167/55, pulse 76, respirations 19. ABDOMEN: Soft. There is still mild incisional tenderness. His bladder is less distended than previously. No suprapubic tenderness. IMPRESSION AND PLAN: The patient reports he has been voiding decent amounts of urine on his Is and Os. He did void 500 mL yesterday. I discussed with him again about possible Luna insertion if he is not voiding but he reports he is not having pain and feels he is voiding adequately. Plan will be to continue him on tamsulosin. At that time, a repeat postvoid bladder scan possibly tomorrow just to document that this is improving. I discussed with the patient. He should follow up in my office after discharge to check on his voiding and his prostate as he has not had any outpatient urologic care. If the patient has a large postvoid residual, I again would offer him the Luna catheter. However, he is currently refusing and he does appear to be voiding spontaneously at this point. Frandy Costa MD
--- NOTE | 2018-04-04 14:23 | PN ---
DATE: 04/03/2018 DAILY PROGRESS NOTE SUBJECTIVE: The patient was seen this Friday morning in room 372, bed 2 and he is post hernia repair NG tube in place. He is now exhibiting symptoms and complains of urinary retention. Bladder scan shows residual approximately 400 mL. The patient blatantly refuses Luna catheterization as this was done before and is very uncomfortable for him. PHYSICAL EXAMINATION: LUNGS: Show good aeration, right and left. HEART: Regular, not tachycardic. ABDOMEN: Soft, but quiet. NG tube is in place. IMPRESSION: Post hernia repair. PLAN: We will check with Surgery regarding their plan for the NG tube. Hopefully as the anesthesia wears off and his Flomax works, he will be more comfortable and void adequately, but Dr. Costa will be asked to consult because of his ongoing symptoms and refusal of bladder catheterization. Our concern is there is slight elevation in his baseline renal insufficiency with creatinine now at 3. Will need to discuss with Renal. Their notes appreciated. Christopher Cabrera MD YRN
--- NOTE | 2018-04-04 14:25 | PN ---
DATE: 04/04/2018 SUBJECTIVE: The patient was seen this Friday morning on 371, bed 1. No visitors present. He is feeling better. NG tube has been discontinued. He continues to refuse Luna catheterization or a straight cath, although he does report he is voiding adequately with stronger flow since Flomax has been increased to 0.8 mg. Urology note by Dr. Costa appreciated. Follow up by Renal, Dr. Sahu noted as well. PHYSICAL EXAMINATION: LUNGS: Show good aeration right and left. HEART: Regular, not tachycardic. ABDOMEN: Soft. The bladder is not palpable. The bowel sounds ARE present in all quadrants. There is no report of flatus or bowel movement yet. IMPRESSION: Postoperative incarcerated inguinal hernia. PLAN: We will increase to clear liquid diet. Increase activity, out of bed. Resume prior medications including Paxil and add Xanax to his pain medicine regimen. Avoid stool softener as well. Follow up for constipation. Hopefully, the patient progresses more smoothly and swiftly at this point and discharge planning in the next few days. Christopher Cabrera MD YRN
[2018-04-04 16:54] VITALS: O2SAT 93
[2018-04-05 06:42] LABS: BASO # 0.01 K/mm3 (0.0-2.0); BASO % 0.1 % (0.0-3.0); EOS # 0.3 (0.0-0.7); EOS % 4.7 % (1.5-5.0); GRAN # 4.88 (1.4-6.5); GRAN % 67.4 % (50.0-68.0); HEMOGLOBIN 8.9 g/dL (14.0-18.0); LYMPH # 1.4 (1.2-3.4); LYMPH % 19.7 % (22.0-35.0); MEAN CELL VOLUME 89.4 fl (80.0-105.0); MEAN CORPUSCULAR HEMOGLOBIN 28.6 pg (25.0-35.0); MONO # 0.6 (0.1-0.6); MONO % 8.1 % (1.0-6.0); RBC 3.11 10^6/uL (3.5-6.1); RED CELL DISTRIBUTION WIDTH 13.1 % (11.5-14.5); WHITE BLOOD COUNT 7.3 10^3/ul (4.5-11.0)
[2018-04-05 08:33] VITALS: PULSE 67; RESP 18; TEMP 98.4
[2018-04-05] MEDS ORDERED: Potassium Chloride 10 MEQ in Dextrose 5%/0.45% NS 1,000 ML IV SCH (09:55)
--- NOTE | 2018-04-05 09:56 | CP.PCM.PN ---
<Silvana Saenz - Last Filed: 04/05/18 09:57> Subjective - Date & Time of Evaluation Date of Evaluation: 04/05/18 Time of Evaluation: 07:30 - Subjective Subjective: Generl surgery progress note for Dr. Royce Saenz, PGY-1 Pt S & E at bedside at 0730 Pt reports ab pain well controlled, is having flatus, tolerating CLD. Denies N & V, F & C. No BM yet. Voiding on his own. UOP is 25cc/hr- low. Objective - Vital Signs/Intake and Output Vital Signs (last 24 hours): Temp Pulse Resp BP Pulse Ox 98.4 F 67 18 146/40 L 93 L 04/05/18 08:32 04/05/18 08:32 04/05/18 08:32 04/05/18 08:32 04/05/18 08:32 Intake and Output: 04/05/18 04/05/18 06:59 18:59 Intake Total 540 Output Total 200 Balance 340 - Medications Medications: Current Medications Alprazolam (Xanax) 0.25 mg PO Q6H PRN PRN Reason: Anxiety Stop: 04/11/18 12:14 Amlodipine Besylate (Norvasc) 5 mg PO DAILY [facility] Last Admin: 04/04/18 11:15 Dose: 5 mg Bisacodyl (Dulcolax) 10 mg RC ONCE ONE Stop: 04/05/18 09:56 Docusate Sodium (Colace) 100 mg PO BID [facility] Enoxaparin Sodium (Lovenox) 30 mg SC DAILY [facility] PRN Reason: Protocol Last Admin: 04/04/18 11:15 Dose: 30 mg Hydralazine HCl (Apresoline) 10 mg IVP Q6 PRN PRN Reason: sbp>160 Last Admin: 04/04/18 06:05 Dose: 10 mg Potassium Chloride 10 meq/ (Dextrose/Sodium Chloride) 1,005 mls @ 125 mls/hr IV .Q8H3M [facility] Ondansetron HCl (Zofran Inj) 4 mg IVP Q4H PRN PRN Reason: Nausea/Vomiting Pantoprazole Sodium (Protonix Inj) 40 mg IVP DAILY [facility] Last Admin: 04/04/18 12:45 Dose: 40 mg Paroxetine HCl (Paxil) 10 mg PO DAILY [facility] Last Admin: 04/04/18 12:46 Dose: 10 mg Tamsulosin HCl (Flomax) 0.4 mg PO BID [facility] Last Admin: 04/04/18 18:01 Dose: 0.4 mg Tramadol HCl (Ultram) 50 mg PO Q6 PRN PRN Reason: Pain, moderate (4-7) - Labs Labs: 04/05/18 05:30 04/05/18 05:30 PT 12.0 SECONDS (9.4-12.5) 04/01/18 09:51 INR 1.04 (0.93-1.08) 04/01/18 09:51 APTT 33.5 Seconds (25.1-36.5) 04/01/18 09:51 - Constitutional Appears: Non-toxic, No Acute Distress - Head Exam Head Exam: ATRAUMATIC, NORMAL INSPECTION, NORMOCEPHALIC - Eye Exam Eye Exam: EOMI, Normal appearance - ENT Exam ENT Exam: Mucous Membranes Moist, Normal Exam - Neck Exam Neck Exam: Full ROM, Normal Inspection - Respiratory Exam Respiratory Exam: NORMAL BREATHING PATTERN - Cardiovascular Exam Cardiovascular Exam: REGULAR RHYTHM, +S1, +S2 - GI/Abdominal Exam GI & Abdominal Exam: Soft, Tenderness (over surgical incision site of lower abdomen. Sight with surgical glue in place, some induration at distal aspect, no fluctuance or drainage noted. ). absent: Distended, Firm, Guarding, Rigid - Extremities Exam Extremities Exam: Normal Inspection - Neurological Exam Neurological Exam: Alert, Awake, CN II-XII Intact, Oriented x3 - Psychiatric Exam Psychiatric exam: Normal Affect, Normal Mood - Skin Skin Exam: Dry, Intact, Normal Color, Warm Assessment and Plan - Assessment and Plan (Free Text) Assessment: 67M POD#4 s/p Repair of right incarcerated inguinal hernia with mesh Plan: Monitor labs Increase IVF to 125 Dulcolax suppository Will slowly advance diet - put to Fulls Urology following Encourage ambulation Encourage IS use Supplement K Further mgmt as per urology, nephrology, & primary teams DW attending Letty, PGY-1 <Chelle Andre - Last Filed: 04/05/18 11:21> Objective - Vital Signs/Intake and Output Vital Signs (last 24 hours): Temp Pulse Resp BP Pulse Ox 98.4 F 67 18 146/50 L 93 L 04/05/18 08:32 04/05/18 10:27 04/05/18 08:32 04/05/18 10:27 04/05/18 08:32 Intake and Output: 04/05/18 04/05/18 06:59 18:59 Intake Total 540 Output Total 200 Balance 340 - Medications Medications: Current Medications Alprazolam (Xanax) 0.25 mg PO Q6H PRN PRN Reason: Anxiety Stop: 04/11/18 12:14 Amlodipine Besylate (Norvasc) 5 mg PO DAILY [facility] Last Admin: 04/05/18 10:27 Dose: 5 mg Docusate Sodium (Colace) 100 mg PO BID [facility] Last Admin: 04/05/18 10:25 Dose: 100 mg Enoxaparin Sodium (Lovenox) 30 mg SC DAILY [facility] PRN Reason: Protocol Last Admin: 04/05/18 10:26 Dose: Not Given Hydralazine HCl (Apresoline) 10 mg IVP Q6 PRN PRN Reason: sbp>160 Last Admin: 04/04/18 06:05 Dose: 10 mg Potassium Chloride 10 meq/ (Dextrose/Sodium Chloride) 1,005 mls @ 125 mls/hr IV .Q8H3M [facility] Ondansetron HCl (Zofran Inj) 4 mg IVP Q4H PRN PRN Reason: Nausea/Vomiting Pantoprazole Sodium (Protonix Inj) 40 mg IVP DAILY [facility] Last Admin: 04/05/18 10:27 Dose: 40 mg Paroxetine HCl (Paxil) 10 mg PO DAILY [facility] Last Admin: 04/05/18 10:27 Dose: 10 mg Tamsulosin HCl (Flomax) 0.4 mg PO BID [facility] Last Admin: 04/05/18 10:26 Dose: 0.4 mg Tramadol HCl (Ultram) 50 mg PO Q6 PRN PRN Reason: Pain, moderate (4-7) - Labs Labs: 04/05/18 05:30 04/05/18 05:30 PT 12.0 SECONDS (9.4-12.5) 04/01/18 09:51 INR 1.04 (0.93-1.08) 04/01/18 09:51 APTT 33.5 Seconds (25.1-36.5) 04/01/18 09:51 Assessment and Plan - Assessment and Plan (Free Text) Plan: I personally saw and examined the patient this morning with resident staff. Bharati. clears without issue. passing liset and had BM this am. Abd soft, slight distension, non tender. R groin incision clean dry and intact. Can advance to low residue diet today and discharge if tolerating. Patient given printed discharge instructions for open inguinal hernia repair. Instructed to follow up with me in clinic 2-3 weeks. My card was given with office number.
[2018-04-05] MEDS: Enoxaparin 30 mg Syringe SC SCH (10:26)
[2018-04-05 10:28] VITALS: BP 146/50
[2018-04-05 18:01] LABS: IRON 15 ug/dL (45-180)
[2018-04-05 18:10] LABS: % IRON SATURATION 9 % (20-55); TOTAL IRON BINDING CAPACITY 165 ug/dL (261-462)
--- NOTE | 2018-04-05 23:42 | PN ---
DATE: 04/05/2018 SUBJECTIVE: The patient is seen lying in bed. He is awake, he is alert, he is comfortable. PHYSICAL EXAMINATION: GENERAL: Elderly male lying in bed. VITAL SIGNS: Blood pressure 146/50, heart rate 67, respiratory rate 18, temperature 98.4. HEENT: Normocephalic, atraumatic, positive pallor. NECK: Supple, no JVD. LUNGS: Bilateral equal entry, bilateral equal expansion. CARDIAC: S1 and S2, regular rate and rhythm, no murmur, no rub. ABDOMEN: Soft, distended, bowel sounds present. EXTREMITIES: No lower extremity edema. INTAKE AND OUTPUT: 840/600. LABORATORY DATA: WBC 7, hemoglobin 8.9, hematocrit 28, platelets 171. Sodium 144, potassium 3.9, chloride 116, CO2 of 20, BUN 27, creatinine 2.5, glucose 119, calcium 8, phosphorus 2.7, magnesium 1.8. Albumin 2.9. Urinalysis: Yellow, cloudy, pH 5.5, specific 1.025, protein 100, blood moderate, leukocyte esterase trace. CURRENT MEDICATIONS: Hydralazine p.r.n., cefoxitin 1 g every 12 hours, Colace 100 b.i.d., Dulcolax, Flomax, Lovenox, amlodipine 5, paroxetine, IV fluids, Protonix, and tramadol. ASSESSMENT: 1. Resolved acute kidney injury. 2. Stable chronic kidney disease stage 3. 3. Status post incarcerated/strangulated right inguinal hernia repair. 4. Severe anemia. 5. Hypertension. 6. Hypocalcemia. PLAN: 1. Check iron, TIBC, and ferritin. 2. Continue current antihypertensives. 3. Needs outpatient followup, discussed with the patient and . 4. No objection to discharge. Shavonne Sahu MD
--- NOTE | 2018-04-06 16:35 | DS ---
This is a 67-year-old man with a history of hypertension, COPD, tobacco use who presented to the emergency room with groin pain. He was found to have an incarcerated inguinal hernia. It could not be reduced in spite of several attempts by the patient, the emergency room physicians and several other physicians and then, Surgery. Patient was taken to the operating room with Dr. Andre and Dr. Thurman. His hernia was repaired and there was no need for bowel resection; however, because of the period of incarceration and bowel sounds were absent, patient required NG tube, which was placed with some difficulty. Post anesthesia, he went into urinary retention, in straight cath, which also caused him a great deal of discomfort, after which he refused to ever have a Luna or straight catheter introduced again. He was treated with high-dose Flomax. His BUN and creatinine bumped from moderately elevated baseline of 2 up to 3 and then, we gave him ample IV hydration. Urology consultation was called to see if there is any additional relief of his retention, but with time, his retention improved, he is voiding adequately, pain subsided. Bowel sounds became present, he tolerated the diet and diet was increased, and today is Friday, with the patient wanting very much to go home with bowel sounds and having had a bowel movement in the morning. Pain was tolerable and he was ready for discharge to home. He will follow up with me in the office later this week and with surgeon in approximately one to two weeks. FINAL DISCHARGE DIAGNOSES: 1. Incarcerated inguinal hernia. 2. Hypertension. 3. Renal insufficiency. 4. Chronic obstructive pulmonary disease. 5. Tobacco use. Christopher Cabrera MD
== END 2018-04-05 15:46 | disposition home or self-care (01) | DRG 351 ==
LOC: ED 08:09 → ERH 10:47 → 3RSO 16:25
PROVIDERS: ADMIT Internal Medicine; ATTEND Internal Medicine
PROC: 0YU50JZ Supplement Right Inguinal Region with Synthetic Substitute, Open Approach (ICD-10-PCS; principal; 2018-04-01 20:46)
DX: K40.31 Unilateral inguinal hernia, with obstruction, without gangrene, recurrent (principal); N17.9 Acute kidney failure, unspecified; E87.0 Hyperosmolality and hypernatremia; N18.4 Chronic kidney disease, stage 4 (severe); I12.9 Hypertensive chronic kidney disease with stage 1 through stage 4 chronic kidney disease, or unspecified chronic kidney disease; E86.0 Dehydration; J44.9 Chronic obstructive pulmonary disease, unspecified; R33.9 Retention of urine, unspecified; D17.6 Benign lipomatous neoplasm of spermatic cord; F17.210 Nicotine dependence, cigarettes, uncomplicated; E87.5 Hyperkalemia; H93.19 Tinnitus, unspecified ear; F41.9 Anxiety disorder, unspecified; F32.9 Major depressive disorder, single episode, unspecified; E83.51 Hypocalcemia; D64.9 Anemia, unspecified; Z85.46 Personal history of malignant neoplasm of prostate